=== PATIENT | male | born 1965 | race Caucasian/White ===

== ENCOUNTER 2016-12-13 17:07 | Emergency (ER) | payer OTHER ==
[2016-12-13 17:42] VITALS: RESP 18
[2016-12-13] MEDS ORDERED: CEPHALEXIN 500MG PREPACK#4 BTL TAKEHOME ONE (18:29)
[2016-12-13] MEDS ORDERED: IBUPROFEN 600 MG TAB PO ONE (18:30)
--- NOTE | 2016-12-13 18:30 | UCPHY ---
H & P Time Seen by Provider: 12/13/16 18:07 Patient Type: New HPI/ROS: CHIEF COMPLAINT: Redness on lump on the right arm HISTORY OF PRESENT ILLNESS: 51-year-old male noted a small tender lump on the medial aspect of his elbow several days ago. Area of tenderness is very well defined. He now notes very faint redness extending on to the medial upper arm and ulnar forearm. No fever. No history of trauma to the arm. No history of bite. No history of IV placement, IV drug use, no diffuse swelling of the arm. No history of DVTs or PEs. No fever, chills, chest pain, shortness of breath, palpitations, vomiting, diarrhea, urinary complaints, headache, lightheadedness. REVIEW OF SYSTEMS: Aside from elements discussed in the HPI, a comprehensive 10-point review of systems was reviewed and is negative. PAST MEDICAL HISTORY: Hypertension, bipolar disorder SOCIAL HISTORY: Nonsmoker. GENERAL APPEARANCE: Pleasant, alert, conversant.. FOCUSED EXAM OF right upper extremity: No swelling. No deformity. Tender, palpable, small lump present on the medial volar forearm. Very faint erythema extending into the medial upper arm in ulnar side of the forearm. Feels like a superficial thrombophlebitis. No swelling of the arm. Full range of motion at the elbow. Neurovascular exam: Good capillary refill, normal motor exam, normal neurologic exam. Smoking Status: Never smoked Constitutional: Initial Vital Signs Temperature (C) 36.4 C 12/13/16 17:40 Heart Rate 98 12/13/16 17:40 Respiratory Rate 18 12/13/16 17:40 Blood Pressure 137/87 H 12/13/16 17:40 O2 Sat (%) 93 12/13/16 17:40 O2 Delivery Mode Room Air Allergies/Adverse Reactions: No Known Allergies Allergy (Unverified 12/13/16 17:38) Home Medications: Medication Instructions Recorded Ambien 12/13/16 Amlodipine Besylate 12/13/16 CLONAZEPAM 12/13/16 Cephalexin [Keflex (RX)] 500 mg PO QID 6 Days 12/13/16 Cymbalta 12/13/16 Flexeril 12/13/16 Risperdal 12/13/16 Topamax 12/13/16 MDM/Departure - [facility] Medications Given: Discontinued Medications Cephalexin (Keflex 500 Mg Prepack#4) 1 btl TAKEHOME EDNOW ONE PRN Reason: Protocol Stop: 12/13/16 18:30 Last Admin: 12/13/16 18:44 Dose: 1 btl Ibuprofen (Motrin) 600 mg PO EDNOW ONE Stop: 12/13/16 18:31 Last Admin: 12/13/16 18:45 Dose: 600 mg ED Course/Re-evaluation: Examination appears to be consistent with a superficial thrombophlebitis with a palpable, tender, thrombus palpable in the medial arm. No history from the patient of blood draw or prior IV placement at that site. Currently I do not have ultrasound available. Plan at this point is to advise treatment for thrombophlebitis, as well as start patient on Keflex. I see no evidence of DVT in the upper arm. Patient has no risk factors for upper extremity DVT. Patient is comfortable with the plan. He will follow up with his primary care physician for re-evaluation if he is not improving rapidly in the next 36-48 hours. Differential Diagnosis: Differential diagnoses for the patient's symptom complex was considered including but not limited to DVT, superficial clot, cellulitis, abscess, muscle strain. - Depart Disposition: Home, Routine, Self-Care Clinical Impression: Suspect superficial thrombophlebitis Cellulitis Qualifiers: Site of cellulitis: extremity Site of cellulitis of extremity: upper extremity Laterality: right Qualified Code(s): L03.113 - Cellulitis of right upper limb Condition: Good Instructions: Cellulitis (ED), Superficial Thrombophlebitis (ED) Additional Instructions: I believe you have a mild infection on your right arm. It looks like you may have a small clot in the vein underneath your skin. The treatment for this is to apply warm compresses several times a day. You should also take nonsteroidals for pain and anti inflammation. I recommend Ibuprofen (Motrin, Advil) or Naproxen Sodium (Aleve) for pain and anti-inflammatory effects. You may take either one, but do not take both. Your dose is: Ibuprofen 600 mg every 6-8 hours with food. OR Naproxen Sodium (Aleve) 220 mg every 12 hours. You been given a prescription for Keflex. Please take this as directed. Your 1st dose was given in the urgent care. Please follow up with your primary care physician in the next 1-2 days if you' re not rapidly improving. Be seen sooner if the arm becomes more red, more swollen, you develop swelling of your hand, shortness of breath, or other concerns. Prescriptions: Cephalexin [Keflex (RX)] 500 mg PO QID 6 Days Referrals: Tra Coronel DO [Primary Care Provider] - As per Instructions - PQRS PQRS Measurement: Not applicable
[2016-12-13 18:58] VITALS: BP 132/84; PULSE 86; TEMP 98.2; O2SAT 94
== END 2016-12-13 18:58 | disposition home or self-care (01) ==
LOC: CED 17:07
DX: L03.113 Cellulitis of right upper limb (principal); I10 Essential (primary) hypertension; F31.9 Bipolar disorder, unspecified
CPT/HCPCS: 99203-PO; G0463-PO

== ENCOUNTER 2018-05-20 14:36 | Emergency (ER) | payer OTHER ==
[2018-05-20 14:46] VITALS: BP 130/83
--- NOTE | 2018-05-20 15:00 | EDPHY ---
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 Patient states that he ran the back of his leg into the corner of a coffee table. It was initially bruised, the pain seemed to get better but then it has become worse again and he noticed a bruise turned yellow prompting him to think that maybe it was infected or he was getting a blood clot. He has been taking ibuprofen and tramadol with minimal relief. Patient denies any trouble breathing or chest pain. REVIEW OF SYSTEMS: As in HPI, and all other systems reviewed and are negative Smoking Status: Never smoked Physical Exam: General Appearance: Alert and no distress. Flat affect, non ill-appearing Head: Normocephalic, atraumatic Eyes: Pupils equal and round no injection. Extraocular movements are intact. Lungs: Bilateral clear to auscultation with no wheezes, rales or rhonchi, normal respiratory effort. Musculoskeletal: Neck is supple and nontender. Extremities: Left lower extremity, positive ecchymoses just below popliteal fossa with no palpable masses or induration or firmness, no erythema, no calor, no at leg swelling and no asymmetry with the right leg. Right leg has multiple ecchymoses of similar color on anterior tibia. DP pulses are 2+ and equal bilaterally, PT pulses are 2+ and equal bilaterally. Skin: No rashes or lesions except as described above. Constitutional: Initial Vital Signs Temperature (C) 36.5 C 05/20/18 14:44 Heart Rate 97 05/20/18 14:44 Respiratory Rate 18 05/20/18 14:44 Blood Pressure 130/83 H 05/20/18 14:44 O2 Sat (%) 95 05/20/18 14:44 O2 Delivery Mode Room Air Allergies/Adverse Reactions: No Known Allergies Allergy (Unverified 05/20/18 14:43) Home Medications: Medication Instructions Recorded Amlodipine Besylate 12/13/16 CLONAZEPAM 12/13/16 Cymbalta 12/13/16 Risperdal 12/13/16 Topamax 12/13/16 LaMICtal 05/20/18 Meloxicam 7.5 mg PO DAILY #10 tablet 05/20/18 Wellbutrin 100mg (*) 05/20/18 MDM/Departure - [facility] ED Course/Re-evaluation: 52-year-old man presents with ecchymoses on his left leg. Patient was concerned that this might be infected or that he was getting a blood clot. Given that he is high risk for VT with an unprovoked prior [facility] in his upper extremity we discussed the possibility of getting an ultrasound. Patient states he did not want to wait for an ultrasound today but would follow up with his primary care physician if it did get better in the next 24 hr. Although I cannot exclude DVT at this point there is no clinical evidence for DVT, only clinical evidence of local trauma, so so I think this is a reasonable plan. Because patient is not getting adequate pain relief from ibuprofen will give him a trial of scan. We discussed return precautions. - Depart Disposition: Home, Routine, Self-Care Condition: Good Instructions: Contusion in Adults (ED) Additional Instructions: You were seen by Dr. Kellie Gifford today. You have a healing contusion (bruise) on your left leg. Please follow up with her primary care physician if it continues be painful, if your leg gets swollen , if it turns red, or the pain goes up your leg toward her groin to evaluate for infection or blood clot. Return for any worsening or new concerns. Prescriptions: Meloxicam 7.5 mg PO DAILY #10 tablet Referrals: Andre Sarabia MD [Primary Care Provider] - As per Instructions
== END 2018-05-20 15:09 | disposition home or self-care (01) ==
LOC: CED 14:36
DX: S80.12XA Contusion of left lower leg, initial encounter (principal); W22.03XA Walked into furniture, initial encounter; Y99.8 Other external cause status; Z86.711 Personal history of pulmonary embolism; Z86.718 Personal history of other venous thrombosis and embolism